=== PATIENT | female | born 1965 | race Caucasian/White ===

== ENCOUNTER 2023-11-01 16:41 | Emergency (ER) | payer OTHER, SELFPAY ==
[2023-11-01 16:45] VITALS: BP 146/90
[2023-11-01 17:13] LABS: % Basophils 1.2 % (0-2); % Eosinophils 2.2 % (0-6); % Immature Granulocytes 0.3 % (0-0.5); % Lymphocytes 35.6 % (20.5-51.1); % Monocytes 7.5 % (1.7-9.3); % Neutrophils 53.2 % (42.2-75.2); Absolute Basophils 0.1 10^3/uL (0-0.2); Absolute Eosinophils 0.2 10^3/uL (0-0.7); Absolute Lymphocytes 2.4 10^3/uL (1.2-3.4); Absolute Monocytes 0.5 10^3/uL (0.1-0.6); Absolute Neutrophils 3.6 10^3/uL (1.4-6.5); Hematocrit 36.8 % (37.0-47.0); Hemoglobin 12.2 g/dL (12.0-16.0); Mean Corp Hgb Conc. 33.2 g/dL (33.0-37.0); Mean Corpuscular Hgb 32.1 pg (27.0-31.0); Mean Corpuscular Volume 96.8 fL (81.0-99.0); Mean Platelet Volume 9.1 fL (7.4-10.4); Nucleated Red Blood Cells % 0 %; Platelet Count 318 10^3/uL (130-400); Red Cell Dist. Width 12.8 % (11.5-14.5); White Blood Cell Count 6.7 10^3/uL (4.8-10.8)
[2023-11-01 17:14] LABS: Urine Albumin Negative (Neg - Trace); Urine Bilirubin Negative (Negative); Urine Character Clear (Clear); Urine Color Yellow; Urine Glucose Negative (Negative); Urine Ketone Negative (Negative); Urine Leukocyte 2+ (Negative); Urine Nitrite Negative (Negative); Urine Occult Blood 2+ (Negative); Urine Urobilinogen Negative (Neg - 1+)
[2023-11-01 17:23] LABS: Urine Urothelial Cell 0-2 /LPF (FEW)
[2023-11-01 17:25] LABS: ALT (SGPT) 42 U/L (0-35); AST (SGOT) 54 U/L (14-36); Albumin 4.8 g/dl (3.5-5.0); Alkaline Phosphatase 68 U/L (38-126); Blood Urea Nitrogen 19 mg/dl (7-17); Calcium 9.1 mg/dl (8.4-10.2); Carbon Dioxide 29 mmol/L (22-30); Chloride 102 mmol/L (98-107); Glucose 97 mg/dl (70-99); Lipase 456 U/L (23-300); Potassium 4.2 mmol/L (3.5-5.1); Sodium 136 mmol/L (135-145); Total Bilirubin 0.4 mg/dl (0.2-1.3); Total Protein 7.4 g/dl (6.3-8.2); Urine Bacteria Few (Negative); eGFR > 60.00
[2023-11-01] MEDS: OMNIPAQUE 50 ML PO (18:14)
[2023-11-01] MEDS: TORADOL 15 MG IV (18:15)
--- NOTE | 2023-11-01 18:16 | ED.GENMED ---
History of Present Illness
General
Chief Complaint: Abdominal Symptoms
Source: patient
Exam Limitations: none
Time Seen by Provider: 11/01/23 17:24
Nursing documentation reviewed up to this point in time: agreed with
Travel History
Have you had any contact with someone who has COVID-19?: No
Do you have any symptoms of coronavirus? Fever > 100 degrees, chills, cough, shortness of breath, sore throat, loss of taste or smell, muscle aches, or headache?: No
History of Present Illness
History of Present Illness:
pt is a 58 y/o F with h/o paraesophageal and hiatal hernia repair [address] luciano
h/o former drug and alcohol abuse
here with 2-3 weeks of upper abd discomfort, bloating with eating
she had no worsening of symptoms today but decided to get checked
she says about 6 mo ago she noticed the swelling in her abdomen and suspected her hernia returned
she is requesting to get it fixed today
she has not had any fever, chills, vomiting, diarrhea, constpiation
pt has not taken anything for pain.
pt says she is supposed to have screening for pancreatic cancer, she had the brca2 gene and had a mastectomy and EFRAIN previously
she hasn't had it in a few years.
Past History
Past History
ED Past Medical History: Cancer (Breast), GERD, Psychiatric (Anxiety depression) and Other (kidney stones); Negative Asthma, HTN, Hypercholesterolemia or NIDDM
ED Past Surgical History: Cholecystectomy, Gynecological (OOphorectomy, Bilateral mastectomy (Brca 2 positive )), Orthopedic and Other (Hiatal hernia repair)
Social History
Tobacco: Former smoker
Alcohol: Former
Drug: None
Personal:
Living: with family
Employment: Employed
Family History
Family History: Other (Noncontributory)
Review of Systems
Review of Systems
Allergies reviewed?: Yes
All Other Systems: Not applicable
Phy Exam
Physical Exam
Physical Exam:
GENERAL: Alert , in no apparent distress, very well appering
EYE: pupils equal and reactive
NECK: Supple
ENT: o/p clr, mmm.
CARDIAC: Regular rate and rhythm .
LUNGS: Clear breath sounds bilaterally, no acute respiratory distress, no wheezes/rales/rhonchi
ABDOMEN: Soft, upper abd i feel possible small hernia which reduced but was tender during the exam; no r/g, no cvat, normal bowel sounds
NEUROLOGICAL: Alert and oriented, no focal neuro deficits
SKIN: Warm and dry, skin intact.
MUSCULOSKELETAL: No edema, well perfused.
PSYCH: Normal and appropriate interaction.
Course
Orders/Labs/Results
Orders:
Orders
11/01/23 16:55
Complete Blood Count/With Diff Urgent
Comprehensive Metabolic Panel Urgent
Lipase Urgent
Urinalysis Reflex To Culture Urgent
Date Specimen was Collected: 11/01/23
Time Specimen was Collected: 16:47
Urine Microscopic Reflex Cult Urgent
Urine Culture Urgent
LILY Source: U
Specimen Description:
Date Specimen was Collected: 11/01/23
Time Specimen was Collected: 16:47
11/01/23 17:46
CT Abd/pel W Iv And Oral Contr Urgent
Comment:
Reason For Exam: upper abd pain x weeks; h/o hernia;
Iohexol [Omnipaque] See Protocol PO NOW STA
Ketorolac [Toradol] 15 mg IV NOW STA
Abnormal Lab Results
11/01/23
16:55
RBC 3.80 L 10^6/uL
(4.20-5.40)
Hct 36.8 L %
(37.0-47.0)
MCH 32.1 H pg
(27.0-31.0)
BUN 19 H mg/dl
(7-17)
AST 54 H U/L
(14-36)
ALT 42 H U/L
(0-35)
Lipase 456 H U/L
(23-300)
Ur Occult Blood Reflex 2+ A
(Negative)
Leukocyte Esterase Rfl 2+ A
(Negative)
Urine RBC 3-6 A /HPF
(0-2)
Urine Bacteria (Reflex) Few A
(Negative)
11/01/23 16:55
11/01/23 16:55
Vital Signs
Initial and Last Documented VS:
Initial Vital Signs
Temp Pulse Resp BP Pulse Ox
97.9 F 95 16 146/90 99
11/01/23 16:45 11/01/23 16:45 11/01/23 16:45 11/01/23 16:45 11/01/23 16:45
Last Documented Vital Signs
Temp Pulse Resp BP Pulse Ox
98.2 F 81 12 140/91 98
11/01/23 18:21 11/01/23 22:23 11/01/23 19:45 11/01/23 22:23 11/01/23 22:23
MDM/Problems Addressed
Differential Diagnosis Includes:
hernia, incarceration, pancreatitis, gastritis, constipation
MDM/Problems Addressed:
58 y/o F with h/o paraesoph and hiatal hernia repair remotely
cholecystectomy
here with weeks of getting bloated after eating
some mild discomfort upper abdomen but it is mostly just feeling uncomfortable and she feels that there is a swelling there that isprobably her hernia recurrence
pt is passing gas, no vomiting, has not been overly constipated
pt is well appearing, no distress
possibly a hernia upper abd but difficult to tell
her labs are reassuring
her CT showed continued stable post op changes distal esophagus
copy of report given
some slight inc dilation of biliary tree, no peripancreatic changes
pt has had elevateD lfts before and they are only sutbly higher
she is not vomiting or having post prandial pain
given how logn these syptmoms have been going on, i do no tsuspect this to be a biliary stone
pt had large amount of stool in colon which likely explains her sxs
she is very hungry and wants to eats
will send her home with bland diet/clear liquids
miralax x 2-3 days
f/u with pcp to trend LFTs
f/u GI
*Critical Care Note
Total Time (30-74mins, 75-104mins- exclusive of procedures): Not Applicable
ED Attending Note
-
Portions of this chart may have been created with voice recognition software.� Occasional wrong word or��sound alike� substitutions may have occurred due to the inherent limitations of voice recognition software.
Discharge Plan
Departure
Patient Disposition: Home (Routine Discharge)
Patient with high blood pressure during this ER visit?: Yes
Condition: Fair
Covid-19: Not Applicable
Discharge Problem:
Constipation, Abdominal pain
Instructions: Constipation, Adult (DC)
Prescriptions:
No Action
bupropion HCl 300 MG tablet extended release 24 hr
300 mg PO DAILY
lisinopril 20 mg Tablet
20 mg PO DAILY
ibuprofen 200 mg Tablet
400 mg PO DAILY
Zoloft
1 tab PO DAILY
Patient Comments:
pt does not know mg
rosuvastatin
1 tab PO DAILY
Patient Comments:
pt does not know mg
acetaminophen 325 MG tablet
650 mg PO DAILY
valacyclovir 500 MG tablet
2,000 mg PO BIDPRN PRN (Reason: cold sores)
Referrals:
Matt Vázquez MD [Family Provider] - Follow up in 5-7 days
Elly Marr MD [Active] - Follow up in 5-7 days
Olu Luciano MD [Active] - Follow up in 1 week
Activity Restrictions/Additional Instructions:
You have stable postsurgical changes of your esophagus. There is no obvious recurrence of your hernia. You do have some gaseous distention of your distal esophagus. You should probably follow-up with your surgeon as well as a GI doctor. You may
need advanced imaging with an MRI or an endoscopy. For now you are also were having a lot of stool in your colon which could be the cause of why you feel so bloated when you eat. Try MiraLAX twice a day for the next 2 to 3 days. 1 capful in 8
ounces of water twice a day. This is [id number]. He should also use Metamucil which is a stool softener. For pain you can use Tylenol or ibuprofen. Return to the ER for severe sudden worsening of pain, vomiting, fever or any concerns.
There is no signs of any bowel obstruction. Your pancreas enzyme was minimally elevated. You should try clear liquids for the next 24 hours. Have these numbers repeated by your doctor next week. Return to the ER for vomiting or any concerns
YOUR LIVER AND PANCREAS ENZYMES NEED TO BE REPEATED NEXT WEEK
RETURN FOR ANY WORSENING SYMPTOMS
Interventions
Interventions:
*Risk Screen - Suicide Last Done: 11/01/23 16:45
*General Assessment Last Done: 11/01/23 16:45
*Neglect/Abuse Screening Last Done: 11/01/23 16:45
ED- Fall Risk Assessment Last Done: 11/01/23 18:35
*ED COVID-19 Vaccine History Last Done: 11/01/23 16:45
*Nursing Disposition Last Done: 11/01/23 22:23
AW-Wrdpos-Rfzohunysu Assessment Last Done: 11/01/23 18:17
Discharge Date and Time
Discharge Date/Time: 11/01/23 22:24
[2023-11-01 18:21] VITALS: BP 176/118
[2023-11-01 18:24] VITALS: BMI 22.5
[2023-11-01 20:00] VITALS: BP 140/97
[2023-11-01 22:05] VITALS: BP 140/91
[2023-11-01 22:23] VITALS: BP 140/91
== END 2023-11-01 22:24 | disposition home or self-care (01) ==
LOC: EMR 16:41
PROVIDERS: EMERGENCY PHYSICIAN Emergency Medicine; FAMILY PHYSICIAN Family Medicine
DX: R10.9 Unspecified abdominal pain (principal); K59.00 Constipation, unspecified; R03.0 Elevated blood-pressure reading, without diagnosis of hypertension; Z87.891 Personal history of nicotine dependence
CPT/HCPCS: 99285; 96374; 74177; 80053; 81003; 81015; 83690; 85025; 87077; 87086; 87186; Q9967

== ENCOUNTER 2024-02-09 06:11 | Day surgery (SDC) | payer OTHER, SELFPAY ==
[2024-02-09] VITALS (9 sets, daily range): BP systolic 109–129; BP diastolic 72–83; BMI 22.4
[2024-02-09] MEDS: TYLENOL 1000 MG PO (10:56)
[2024-02-09] MEDS: NORMOSOL-R 1000 IV (10:57)
[2024-02-09] MEDS: ZOFRAN 4 MG IV (12:06)
[2024-02-09] MEDS: DILAUDID 0.5 MG IV ×2 (12:06→12:33)
--- NOTE | 2024-02-09 12:43 | W.SUR.PREOP ---
Pre-Operative Surgical Note
-
I have examined this patient prior to the performance of the scheduled procedure.
The patient's condition is unchanged from the time of the current History and
Physical and the patient is able to undergo the scheduled procedure.
--- NOTE | 2024-02-09 12:43 | W.IMMPOSTOP ---
Surgical Immed Post Op Note
-
Primary Surgeon: Gen Hatch MD
Assisting Surgeon: None
Pre-op Diagnosis: Incisional hernia
Post-op Diagnosis: Same
Procedure Performed: Open incisional hernia repair with mesh
Anesthesia Type: General
Specimen / Cultures:. Hernia contents
Estimated Blood Loss: 1 cc
Complications: None
Operative Findings: 1 cm incisional hernia Containing preperitoneal fat (reduced and resected). 4 x 4 cm preperitoneal space developed. Hernia defect closed with a running 0 PDS suture reinforced with a 4 x 4 centimeter Bard soft underlay mesh in
the preperitoneal space.
--- NOTE | 2024-02-09 12:45 | OR.RPT ---
Operative Report
Operative Report
Patient Name: Yanci Burns
: 1965
Date of Operation: 02/09/2024
Preoperative Diagnosis: Incisional hernia
Postoperative Diagnosis: Same
Procedure(s):
Open incisional hernia repair with mesh
Surgeon(s):
Dr. Hatch
Control Systems Developer(s):
CRISTIANA Brown
Anesthesia: General
Estimated Blood Loss: 1 cc
Urine Output: None
Drains/Lines/Implants: None
Specimens: Hernia contents
Indication for surgery:
The patient has a symptomatic incisional port site hernia from a prior minimally invasive surgery. This was confirmed both on physical exam and CT imaging. She had no other defects noted. After review of their therapeutic options, they elected to
pursue a minimally invasive repair.
Operative Findings: 1 cm incisional hernia Containing preperitoneal fat (reduced and resected). 4 x 4 cm preperitoneal space developed. Hernia defect closed with a running 0 PDS suture reinforced with a 4 x 4 centimeter Bard soft underlay mesh in
the preperitoneal space.
Details of the operation:
After successful induction of general anesthesia and placement of an endotracheal tube, the patient was prepped and draped in the supine position. A team timeout was performed confirming administration of DVT prophylaxis, IV antibiotics and SCDs.
After injection of local anesthesia, a transverse linear incision was made over her hernia including her previous incision. We dissected through the subcutaneous tissue till the hernia sac was identified. This was circumferentially dissected off
of the fascia. The hernia contents (preperitoneal fat, likely part of the falciform ligament) were then ligated with a 2-0 Vicryl tie with a stump return to the abdomen. The hernia contents were passed off the field as a specimen. The hernia
defect measured roughly 1 cm in diameter. We then developed the preperitoneal space until a 4 x 4 centimeter pocket was created. A piece of Bard soft mesh was then cut to 4 x 4 cm in the middle was marked with Vicryl. This was inserted into the
defect and laid flat. The hernia defect was then closed with a running 0 PDS suture taking a small bite of the underlying fascia to help secure it in place. The overlying subcutaneous tissue and dermis was then closed in layers to approximate the
space using interrupted 3-0 Vicryls. The skin was closed with Dermabond. There were no intraoperative or immediate complications. Counts were correct x 1. The patient was awakened from general anesthesia and extubated and transferred to the
recovery room, having tolerated the procedure well. I was the attending physician and performed the procedure with assistance from the PA listed above. The assistance of CRISTIANA Brown was required due to the complexity of the procedure. During the
procedure Sylvia assisted with retraction, resection, and closure of the wound. I was present for all portions of the case.
Gen Hatch MD
== END 2024-02-09 13:43 | disposition home or self-care (01) ==
LOC: SDS 06:11
PROVIDERS: ATTENDING PHYSICIAN Surgery
DX: K43.2 Incisional hernia without obstruction or gangrene (principal)
CPT/HCPCS: 49593; 88302

== ENCOUNTER 2024-12-19 17:16 | Inpatient (IN) | payer OTHER, SELFPAY ==
[2024-12-19 15:18] VITALS: BP 148/93
[2024-12-19 15:38] LABS: % Basophils 0.5 % (0-2); % Eosinophils 0.9 % (0-6); % Immature Granulocytes 0.5 % (0-0.5); % Lymphocytes 14.2 % (20.5-51.1); % Monocytes 5.9 % (1.7-9.3); Absolute Basophils 0.1 10^3/uL (0-0.2); Absolute Eosinophils 0.1 10^3/uL (0-0.7); Absolute Immature Granulocytes 0.1 10^3/uL (0-0.05); Absolute Lymphocytes 1.6 10^3/uL (1.2-3.4); Absolute Monocytes 0.7 10^3/uL (0.1-0.6); Absolute Neutrophils 8.5 10^3/uL (1.4-6.5); Hematocrit 36.3 % (37.0-47.0); Hemoglobin 12.2 g/dL (12.0-16.0); Mean Corp Hgb Conc. 33.6 g/dL (33.0-37.0); Mean Corpuscular Hgb 33.2 pg (27.0-31.0); Mean Corpuscular Volume 98.9 fL (81.0-99.0); Nucleated Red Blood Cells % 0 %; Platelet Count 353 10^3/uL (130-400); Red Blood Cell Count 3.67 10^6/uL (4.20-5.40); Red Cell Dist. Width 13.1 % (11.5-14.5)
[2024-12-19 15:52] LABS: ALT (SGPT) 23 U/L (0-35); AST (SGOT) 35 U/L (14-36); Albumin 4.8 g/dl (3.5-5.0); Alkaline Phosphatase 65 U/L (38-126); Blood Urea Nitrogen 19 mg/dl (7-17); Calcium 9.5 mg/dl (8.4-10.2); Carbon Dioxide 26 mmol/L (22-30); Chloride 104 mmol/L (98-107); Glucose 89 mg/dl (70-99); Potassium 3.8 mmol/L (3.5-5.1); Sodium 140 mmol/L (135-145); Total Bilirubin 0.5 mg/dl (0.2-1.3); Total Protein 7.4 g/dl (6.3-8.2); eGFR > 60.00
--- NOTE | 2024-12-19 16:02 | ED.SKININJ ---
HPI-Injury
General
Chief Complaint: Bite
Source: patient
Exam Limitations: none
Time Seen by Provider: 12/19/24 15:54
History of Present Illness-Injury
Initial Injury comments:
59yo right hand dominant female with a history of hypertension, hyperlipidemia, and prior breast cancer presenting for evaluation after a cat bite to her left forearm 2 days ago. Patient was bitten by her indoor cat. Cat is up to date on rabies
vaccination. She developed redness and drainage from the bite wound yesterday. She was seen by her PCP and was given 1g IM Rocephin and started on a course of Augmentin. The redness was outlined with a skin marker at that time. The redness has
progressed outside of border which prompted her to go to the ED for evaluation. No fevers or chills. She is up to date on Tdap.
Past History
Past History
ED Past Medical History: Cancer (Breast), GERD, Psychiatric (Anxiety depression) and Other (kidney stones); Negative Asthma, HTN, Hypercholesterolemia or NIDDM
ED Past Surgical History: Cholecystectomy, Gynecological (OOphorectomy, Bilateral mastectomy (Brca 2 positive )), Orthopedic and Other (Hiatal hernia repair)
Social History
Tobacco: Former smoker
Alcohol: Former
Drug: None
Personal:
Living: with family
Employment: Employed
Family History
Family History: Other (Noncontributory)
Phy Exam
General Physical Exam
General Presentation: well appearing and no apparent distress
General age: appears stated age
General Skin: warm and dry
General Habitus: normal
General Mental: alert
ENT Exam
ENT Exam: normocephalic
Pulmonary Exam
Pulmonary Exam: no respiratory distress
Neurological Exam
Neurological Exam: alert
[place] Coma Scale
Eye Opening: Spontaneous
Verbal Response: Oriented
Motor Response: Obeys Commands
GCS Total Score: 15
Skin Exam
Skin Exam: warm/dry and other (Bite wounds noted to dorsal forearm with tenderness. No obvious drainage or fluctuance. +Surrounding erythema extending behind skin marker border. Compartments soft. No crepitus or pain out of proportion. )
Psychiatric Exam
Psychiatric Exam: normal mood/affect
Course
Orders/Labs/Results
Orders:
Orders
12/19/24 Breakfast
Regular
At Your Request: Full Participation
12/19/24 15:30
CBC/With Diff [Complete Blood Count/With Diff] Urgent
Comprehensive Metabolic Panel Urgent
Blood Culture Urgent
LILY Source: Blood/Venous
Specimen Description:
12/19/24 16:01
0.9% Sodium Chloride 1000 ml [Nss] 1,000 ml IV BOLUS
Ketorolac [Toradol] 15 mg IV NOW STA
CR Forearm - Left 2 View Urgent
Comment:
Reason For Exam: cat bite
12/19/24 16:44
Ampicillin/Sulbactam 3 G [Unasyn] 3 gm 0.9% Sodium Chloride 100 ml [Nss] 100 ml IV NOW
12/19/24 16:57
Admit/Transfer Patient As Directed
Co-Sign Provider:
Level of Care: Inpatient admission
Assign to:: Medical/Surgical
Physician / Group: maximo
Diagnosis: devonte bite infection
Reason for Hospitalization: cat bite infection
Expected length of stay greater than two midnights?: Yes
ELOS- Estimated Length of Stay in days: 3
I certify the patient meets the requirements for IP care: Yes
PRN Pain Medication Management As Directed
May give lesser potent ordered pain med per pt: Yes
preference::
Protocol:: Medication orders for pain may be administered in a
manner that supports deferring to patient preference
when the pt is:
- Requesting an ordered lesser potent pain medication.
Least to most potent pain medications are defined
as: acetaminophen < NSAID < tramadol < opioids
(morphine, oxycodone, hydromorphone).
- Requesting a lesser dose of the same medication IF
ORDERED.
- Requesting a less intrusive route of administration
if both routes are prescribed by the provider (PO <
IV).
12/19/24 16:58
Code Status As Directed
Resuscitation Status: Full Code
Abnormal Lab Results
12/19/24
15:30
WBC 11.0 H 10^3/uL
(4.8-10.8)
RBC 3.67 L 10^6/uL
(4.20-5.40)
Hct 36.3 L %
(37.0-47.0)
MCH 33.2 H pg
(27.0-31.0)
Abs Immat Gran (auto) 0.1 H 10^3/uL
(0-0.05)
Absolute Neuts (auto) 8.5 H 10^3/uL
(1.4-6.5)
Absolute Monos (auto) 0.7 H 10^3/uL
(0.1-0.6)
Neutrophils % 78.0 H %
(42.2-75.2)
Lymphocytes % 14.2 L %
(20.5-51.1)
BUN 19 H mg/dl
(7-17)
12/19/24 15:30
12/19/24 15:30
Vital Signs
Initial and Last Documented VS:
Initial Vital Signs
Temp Pulse Resp BP Pulse Ox
98.2 F 95 16 148/93 98
12/19/24 15:18 12/19/24 15:18 12/19/24 15:18 12/19/24 15:18 12/19/24 15:18
Last Documented Vital Signs
Temp Pulse Resp BP Pulse Ox
98.2 F 88 16 132/92 94
12/19/24 15:18 12/19/24 17:42 12/19/24 17:42 12/19/24 17:42 12/19/24 17:42
MDM/Problems Addressed
Differential Diagnosis Includes:
59yoF here with a L forearm infection after being bitten by her cat 2 days ago. Received IM Rocephin at PCP's office and started on Augmentin. Redness now worsening. No f/c. VSS. She is well appearing in no distress. There is evidence of cellulitis
on exam. LUE is neurovascularly intact. Differential diagnosis includes: cellulitis, lymphangitis, no clinical evidence of abscess
Labs obtained in triage which shows a mild leukocytosis with a WBC of 11. X-rays of forearm added which are normal. She was started on IV Unasyn and admitted for further management.
*Critical Care Note
Total Time (30-74mins, 75-104mins- exclusive of procedures): Not Applicable
ED Attending Note
-
Portions of this chart may have been created with voice recognition software.� Occasional wrong word or��sound alike� substitutions may have occurred due to the inherent limitations of voice recognition software.
Discharge Plan
Departure
Patient Disposition: Admit
Date of Disposition: 12/19/24
Time of Disposition: 16:40
Presentation/result/management discussed w/ accepting MD/DO: Hospitalist
Discharge Problem:
Cat bite of left forearm with infection
Interventions
Interventions:
*Risk Screen - Suicide Last Done: 12/19/24 15:18
*General Assessment Last Done: 12/19/24 16:58
*Neglect/Abuse Screening Last Done: 12/19/24 15:18
*ED- Fall Risk Assessment Last Done: 12/19/24 16:58
*ED COVID-19 Vaccine History Last Done: 12/19/24 17:02
ED-Skin Assessment Last Done: 12/19/24 16:58
--- NOTE | 2024-12-19 16:41 | HPS.HSE ---
Family Physician
-
Family Physician: Matt Vázquez
Chief Complaint
-
cat bite to left forearm
History of Present Illness
59yo right hand dominant female with a history of hypertension, hyperlipidemia, and prior breast cancer presenting for evaluation after a cat bite to her left forearm 2 days ago. Patient was bitten by her indoor cat. Cat is up to date on rabies
vaccination. She developed redness and drainage from the bite wound yesterday. She was seen by her PCP and was given 1g IM Rocephin and started on a course of Augmentin. The redness was outlined with a skin marker at that time. The redness has
progressed outside of border which prompted her to go to the ED for evaluation. No fevers or chills. denied [place], dizzy or syncope. denied chest pain, sob. denied abdominal pain,n,v,d. denied dysuria or hematuria.
Patient received Unasyn, Toradol, normal saline in ER. Blood culture sent from ER
Medical History
Past Medical History
Past Medical History: Reports Other
Additional Past Medical History:
Anxiety
Cellulitis
Sciatica
Insomnia
Phantom limb syndrome with pain
Depression
Iron deficiency anemia
Oropharyngeal dysphagia
Past Surgical History: Reports Other
Additional Past Surgical History:
Cholecystectomy
ACL repair of left knee
Double mastectomy
Bilateral oophorectomy
Social History
Tobacco: Former Smoker
Alcohol: Former
Drug: None
Family History
Family History: Not pertinent
Allergies / Home Medications
Allergies reflects when Allergies were last updated in [facility].
Home Medications with original date entered in [facility]
Allergy/Medication List:
Allergies
Allergy/AdvReac Type Severity Reaction Status Date / Time
pegfilgrastim [From Neulasta] Allergy Rash Verified 12/19/24 15:18
Home Medications
bupropion HCl 300 mg 24 hr tablet, extended release 450 mg PO DAILY 03/10/17
valacyclovir 500 mg tablet 2,000 mg PO BIDPRN PRN cold sores 12/18/22
Algae 1 tab PO DAILY 02/06/24
Vitamin C With K 1 tab PO DAILY 02/06/24
acetaminophen 500 mg tablet 1,000 mg PO Q6H PRN pain 02/06/24
biotin 1 cap PO DAILY 02/06/24
flaxseed oil 1,000 mg capsule 1,000 mg PO DAILY 02/06/24
ibuprofen 200 mg tablet 200 mg PO Q6H PRN pain 02/06/24
mecobalamin (vitamin B12) 1,000 mcg chewable tablet (B12 Active) 1,000 mcg PO DAILY 02/06/24
omega-3 fatty acids 1,000 mg PO DAILY 02/06/24
rosuvastatin 5 mg tablet 5 mg PO DAILY 02/06/24
royal jelly 1 tab PO DAILY 02/06/24
sertraline 50 mg tablet (Zoloft) 50 mg PO DAILY 02/06/24
tramadol 50 mg tablet 25 mg (1/2 x 50 mg) PO Q6HPRN PRN severe pain/breakthrough pain #8 tabs 02/09/24
tramadol 50 mg tablet 50 mg PO Q6HPRN PRN severe pain/breakthrough pain #12 tabs 02/11/24
Review of Systems
-
Constitutional: Reports No Symptoms
EENT: Reports No Symptoms
Respiratory: Reports No Symptoms
Cardiac: Reports No Symptoms
Abdomen/GI: Reports No Symptoms
: Reports No Symptoms
Musculoskeletal: Reports No Symptoms
Skin: Reports Other (left forearm red, )
Neurological: Reports No Symptoms
Endocrine: Reports No Symptoms
Hematologic/Lymphatic: Reports No Symptoms
Psych: Reports No Symptoms
Physical Exam
Vital Signs
Vital Signs
Temp Pulse Resp BP Pulse Ox
98.2 F 95 16 148/93 98
12/19/24 15:18 12/19/24 15:18 12/19/24 15:18 12/19/24 15:18 12/19/24 15:18
Physical Exam
General: Well Developed, Well Nourished and No Apparent Distress
HEENT: NormoCephalic, Moist mucous membranes and Atraumatic
Respiratory: Clear
Cardiac: S1/S2 and Regular Rhythm; No Murmur or Rub
GI: Soft, Non Tender, Non Distended and Normal Bowel Sounds; No Organomegaly
Rectal: Deferred by Provider
Musculoskeletal: No Clubbing, No Cyanosis and No Edema
Skin: Other (left forearm redness)
Neuro: AO x 3 and Nonfocal/grossly intact
Psych: Calm
Laboratory Results
-
12/19/24 15:30
12/19/24 15:30
Laboratory Results
Total Bilirubin 0.5 mg/dl (0.2-1.3) 12/19/24 15:30
AST 35 U/L (14-36) 12/19/24 15:30
ALT 23 U/L (0-35) 12/19/24 15:30
Alkaline Phosphatase 65 U/L (38-126) 12/19/24 15:30
Data Reviewed
-
Lab Data: Labs Reviewed by me
Impression/Plan
-
#left forearm cat bite infection
-iv Unasyn
-forearm x ray with No acute fracture or dislocation. Partially visualized regional joints demonstrate minimal degenerative changes. Soft tissues are grossly unremarkable.
-wbc 11.0
-blood culture sent from ER
-Tylenol prn for fever and pain
#anxiety/depression
-Lamictal, Zoloft, trazodone continued
#DVT prophylaxis
-Lovenox
#CODE status
-full code
[2024-12-19] MEDS: NSS 1000 IV (16:42)
[2024-12-19] MEDS: TORADOL 15 MG IV (16:43)
[2024-12-19 16:57] VITALS: BMI 23.1
[2024-12-19] MEDS: UNASYN IV (17:03)
--- NOTE | 2024-12-19 17:09 | W.PN.UPDATE ---
Update Note
Progress Note Update
This is an addendum to the H&P written by Tessa Yen on 12/19/2024.� Patient seen and examined independently with SAP TECHNICAL DEVELOPER.
59-year-old female breast cancer status post double mastectomy, hypertension, hyperlipidemia, anxiety/depression, presenting with cat bite from her own cat 2 days ago with progression despite amoxicillin.
Labs show leukocytosis.� Forearm x-ray negative.
Patient with cat bite cellulitis.
Unasyn.
[2024-12-19 17:15] VITALS: BP 132/92
[2024-12-19 17:42] VITALS: BP 132/92
[2024-12-19] MEDS: ULTRAM 100 MG PO (18:44)
--- NOTE | 2024-12-19 21:00 | PTCARENOTE ---
Pt arrived to [facility] from ED, ambulates independently in room. AAOx3, reports severe pain in left lower arm. Only tramadol 100mg PRN ordered, next dose not due until 43. COSMETOLOGY TEACHER Radha notified, 1x Tylenol order placed and provided to pt. VSS,
oriented to room and call garcia in reach.
[2024-12-19 21:03] VITALS: BP 134/86
[2024-12-19 21:04] VITALS: BMI 22.9
[2024-12-19] MEDS: TYLENOL 650 MG PO (21:34)
[2024-12-19] MEDS: MELATONIN 5 MG PO (21:35)
[2024-12-19] MEDS: LOVENOX 40 MG SC (21:35)
[2024-12-19] MEDS: DESYREL 75 MG PO (21:35)
[2024-12-19 23:28] VITALS: BP 123/86
[2024-12-20] MEDS: UNASYN IV ×5 (00:24→23:55)
[2024-12-20] MEDS: ULTRAM 100 MG PO ×2 (00:48→07:42)
--- NOTE | 2024-12-20 03:50 | DOWNTIME ---
There was a [employer] Client Distance Education Coordinator Downtime on 12/20/2024 from 0200 to 12/21/2023 at 0318 . Downtime documentation of patient's care, including medication administrations, has been reconciled in the electronic record per guidelines. Refer to the
patient's paper chart under the miscellaneous tab to see printed paper medication records and downtime forms.
[2024-12-20 07:00] VITALS: BP 113/70
[2024-12-20] MEDS: WELLBUTRIN XL (24 hour extended release) 300 MG PO (07:41)
[2024-12-20] MEDS: LAMICTAL 75 MG PO (07:42)
[2024-12-20] MEDS: ZOLOFT 100 MG PO (07:43)
--- NOTE | 2024-12-20 08:38 | W.PN.HOSP.TC ---
Addendum entered and electronically signed by Bebeto Roman MD 12/20/24 14:14:
Correction--> she is not allergic to tylenol.
Original Note:
Today's Communication/Plan
-
Antibiotics. Pain control
Assessment / Plan
Assessment / Plan
Physical Exam
General: Well Developed, Well Nourished and No Apparent Distress
HEENT: NormoCephalic, Moist mucous membranes and Atraumatic
Respiratory: Clear
Cardiac: S1/S2 and Regular Rhythm; No Murmur or Rub
GI: Soft, Non Tender, Non Distended and Normal Bowel Sounds; No Organomegaly
Rectal: Deferred by Provider
Musculoskeletal: No Clubbing, No Cyanosis and No Edema
Skin: Other (left forearm redness receding but tenderness present and warmth)
Neuro: AO x 3 and Nonfocal/grossly intact
Psych: Calm
A/P:
#left forearm cat bite infection
- Continue iv Unasyn
-forearm x ray with No acute fracture or dislocation. Partially visualized regional joints demonstrate minimal degenerative changes. Soft tissues are grossly unremarkable.
-wbc 11.0--> 7.5
-blood culture sent from ER--> no growth
- Allergic to Tylenol. Change tramadol to oxycodone for pain control.
#anxiety/depression
-Lamictal, Zoloft, trazodone continued
#DVT prophylaxis
-Lovenox
#History of E. coli ESBL back in October
Continue isolation precaution
#CODE status
-full code
Anticipated Discharge: Within 24 hours
Subjective/Interval History
-
Date of Service: December 20, 2024
Erythema improving. Pain still significant and she does not think current pain medication are enough. Afebrile
Objective Data
-
Labs:
Laboratory Results
12/20/24
06:50
WBC Pending
Hgb Pending
Hct Pending
Plt Count Pending
Vital Signs:
Vital Signs
Temp Pulse Resp BP Pulse Ox
97.9 F 69 18 113/70 99
12/20/24 07:00 12/20/24 07:00 12/20/24 07:00 12/20/24 07:00 12/20/24 07:00
I&O
12/19/24 12/20/24 12/21/24
06:59 06:59 06:59
Intake Total 720 / 720
Balance 720 / 720
[2024-12-20 08:39] LABS: Hematocrit 32.6 % (37.0-47.0); Hemoglobin 10.8 g/dL (12.0-16.0); Mean Corp Hgb Conc. 33.1 g/dL (33.0-37.0); Mean Corpuscular Hgb 33.4 pg (27.0-31.0); Mean Corpuscular Volume 100.9 fL (81.0-99.0); Mean Platelet Volume 9.3 fL (7.4-10.4); Platelet Count 317 10^3/uL (130-400); Red Blood Cell Count 3.23 10^6/uL (4.20-5.40); Red Cell Dist. Width 13.2 % (11.5-14.5); White Blood Cell Count 7.5 10^3/uL (4.8-10.8)
--- NOTE | 2024-12-20 10:37 | CM ---
CM reviewed chart, patient seen bedside, initial assessment completed. Patient reports she was bitten by her cat, feeling much better today. Patient reports she lives independently in a barn apartment, two floors. Patient is independent with
ADLs/IADLs, denies VN/SNF history. Patient confirms PCP Matt Jaquez, [facility], confirms prescription coverage. Patient hopeful for discharge home.
Plan; home no needs likely.
[2024-12-20] MEDS: ROXICODONE 5 MG PO (11:29)
[2024-12-20] MEDS: TYLENOL 650 MG PO (14:17)
--- NOTE | 2024-12-20 14:19 | PTCARENOTE ---
Pt requests Tylenol for headache pain. Left arm redness and edema is reduced.
[2024-12-20 15:00] VITALS: BP 124/80
[2024-12-20] MEDS: LOVENOX 40 MG SC (17:35)
[2024-12-20] MEDS: ZOFRAN 4 MG IV (18:47)
[2024-12-20] MEDS: ROXICODONE 10 MG PO (20:46)
[2024-12-20] MEDS: MELATONIN 5 MG PO (22:43)
[2024-12-20] MEDS: DESYREL 75 MG PO (22:43)
[2024-12-20 23:17] VITALS: BP 111/64
[2024-12-21 05:08] LABS: Hepatitis C Antibody Negative (Negative)
[2024-12-21] MEDS: UNASYN IV (05:55)
[2024-12-21 07:00] VITALS: BP 100/70
[2024-12-21 08:38] LABS: Hematocrit 34.1 % (37.0-47.0); Hemoglobin 11.5 g/dL (12.0-16.0); Mean Corp Hgb Conc. 33.7 g/dL (33.0-37.0); Mean Corpuscular Hgb 33.9 pg (27.0-31.0); Mean Corpuscular Volume 100.6 fL (81.0-99.0); Mean Platelet Volume 8.9 fL (7.4-10.4); Platelet Count 331 10^3/uL (130-400); Red Blood Cell Count 3.39 10^6/uL (4.20-5.40); Red Cell Dist. Width 13.2 % (11.5-14.5); White Blood Cell Count 6.2 10^3/uL (4.8-10.8)
--- NOTE | 2024-12-21 08:46 | W.PN.HOSP.TC ---
Today's Communication/Plan
-
Discharge planning today
Assessment / Plan
Assessment / Plan
Physical Exam
General: Well Developed, Well Nourished and No Apparent Distress
HEENT: NormoCephalic, Moist mucous membranes and Atraumatic
Respiratory: Clear
Cardiac: S1/S2 and Regular Rhythm; No Murmur or Rub
GI: Soft, Non Tender, Non Distended and Normal Bowel Sounds; No Organomegaly
Rectal: Deferred by Provider
Musculoskeletal: No Clubbing, No Cyanosis and No Edema
Skin: Other (left forearm redness receding significantly and tenderness)
Neuro: AO x 3 and Nonfocal/grossly intact
Psych: Calm
A/P:
#left forearm cat bite infection
- Change iv Unasyn to oral Augmentin
-forearm x ray with No acute fracture or dislocation. Partially visualized regional joints demonstrate minimal degenerative changes. Soft tissues are grossly unremarkable.
-wbc 11.0--> 6.2
-blood culture sent from ER--> no growth
- Allergic to Tylenol. Change tramadol to oxycodone for pain control.
#anxiety/depression
-Lamictal, Zoloft, trazodone continued
#DVT prophylaxis
-Lovenox
#History of E. coli ESBL back in October
Continue isolation precaution
#CODE status
-full code
Anticipated Discharge: Today
Subjective/Interval History
-
Date of Service: December 21, 2024
Doing well erythema and pain. Afebrile
Objective Data
-
Labs:
Laboratory Results
12/21/24
08:11
WBC 6.2
Hgb 11.5 L
Hct 34.1 L
Plt Count 331
Vital Signs:
Vital Signs
Temp Pulse Resp BP Pulse Ox
98.1 F 78 16 111/64 96
12/20/24 23:17 12/20/24 23:17 12/20/24 23:17 12/20/24 23:17 12/20/24 23:17
I&O
12/20/24 12/21/24 12/22/24
06:59 06:59 06:59
Intake Total 720 / 720 1440 / 1440
Balance 720 / 720 1440 / 1440
[2024-12-21] MEDS: LAMICTAL 75 MG PO (09:07)
[2024-12-21] MEDS: ZOLOFT 100 MG PO (09:07)
[2024-12-21] MEDS: WELLBUTRIN XL (24 hour extended release) 300 MG PO (09:07)
--- NOTE | 2024-12-21 09:28 | W.DCSUMMARY ---
Discharge Summary
Discharge Data
Date of Admission: 12/19/24
Date of Discharge: 12/21/24
-
Pending Results: No
Hospital Course
Patient is 59 years old female history of hypertension, hyperlipidemia, breast cancer, came into the hospital after cat bite in the left forearm. Patient was given oral antibiotic but redness progressed and came into the hospital. Patient was
started on IV antibiotics and given pain medications. X-ray unremarkable of the affected area. Patient is substantially improved and erythema has almost subsided completely. Blood cultures no growth. Afebrile. Hemodynamically stable. Patient
is eager to go home today. She will be switched to oral antibiotics to complete a 10 days course. No other events were noticed.
Discharge duration: 35 minutes
Discharge Plan
-
Patient Disposition: Home (Routine Discharge)
Discharge Diagnosis/Procedures: Left upper extremity cat bite cellulitis. Depression and anxiety.
Diet: Low Cholesterol
Activity: As tolerated
Blood Work: Please PCP to order CBC, BMP within 1 week
Referrals:
Matt Vázquez MD [Family Provider] - in less than 1 week
Prescriptions:
New
amoxicillin-pot clavulanate 875-125 mg Tablet
1 tab PO Q12 10 Days Qty: 20 0RF
oxycodone 5 mg Tablet
5 mg PO Q4HPRN PRN (Reason: moderate pain) Qty: 10 0RF
Continued
bupropion HCl 300 MG tablet extended release 24 hr
300 mg PO DAILY
sertraline [Zoloft] 50 mg Tablet
100 mg PO DAILY
Algae
1 tab PO DAILY
biotin 10 mg Tablet
10 mg PO DAILY Qty: 0
flaxseed oil 1,000 mg Capsule
1,000 mg PO DAILY
ibuprofen 200 mg Tablet
200 mg PO Q6HPRN PRN (Reason: mild pain)
omega-3 fatty acids Capsule
1,000 mg PO DAILY
royal jelly
1 tab PO DAILY
trazodone 50 mg Tablet
75 mg PO HS
lamotrigine [Lamictal] 25 mg Tablet
75 mg PO DAILY
Patient Comments:
Pt reports that she takes 75mg daily although her order states to take 4 25mg tablets daily
Rx Instructions:
Take 4 tablets by mouth once daily
lisdexamfetamine [Vyvanse] 30 mg Capsule
30 mg PO DAILY
Discharge Orders:
Discharge Patient (As Directed); Ordered 12/21/24
Ordered By: Bebeto Roman
Discharge Date and Time
Discharge Date/Time: 12/21/24 10:41
Print Language: MALDIVIAN
--- NOTE | 2024-12-21 10:20 | CM ---
CM reviewed chart, patient seen bedside, for discharge today. Patient denies needs, confirms she has transportation home. CM will continue to follow for all discharge planning needs.
Plan; home no needs.
== END 2024-12-21 10:41 | disposition home or self-care (01) | DRG 605 ==
LOC: 4 WEST ACU 17:16
PROVIDERS: Emergency Medicine; Registered Nurse; ADMITTING PHYSICIAN Hospitalist; ATTENDING PHYSICIAN Hospitalist; EMERGENCY PHYSICIAN Student in an Organized Health Care Education/Training Program; FAMILY PHYSICIAN Family Medicine
DX: S51.852A Open bite of left forearm, initial encounter (principal); L03.114 Cellulitis of left upper limb; W55.01XA Bitten by cat, initial encounter; F41.9 Anxiety disorder, unspecified; F32.A Depression, unspecified; Z85.3 Personal history of malignant neoplasm of breast; E78.00 Pure hypercholesterolemia, unspecified; M54.30 Sciatica, unspecified side; G47.00 Insomnia, unspecified; G54.6 Phantom limb syndrome with pain; D50.9 Iron deficiency anemia, unspecified; R13.12 Dysphagia, oropharyngeal phase; Z90.13 Acquired absence of bilateral breasts and nipples; Z87.891 Personal history of nicotine dependence; I10 Essential (primary) hypertension; K21.9 Gastro-esophageal reflux disease without esophagitis
CPT/HCPCS: 73090; 80053; 85025; 85027; 86803; 87040; 87070; 87147; 93005; 99284